=== PATIENT | female | born 1955 | race Hispanic/Latino ===

== ENCOUNTER → 2019-01-03 | Outpatient (CLI) | payer MEDICARE ==
[~2019-01-03] VITALS: Ht 162.6 cm; Wt 161.0 kg
[~2019-01-03] MED LIST: REGADENOSON 0.4 MG/5 ML PF SYG IVP SCH
== END | disposition home or self-care (01) ==
LOC: SHCH 08:35
PROVIDERS: ATTEND Internal Medicine Cardiovascular Disease
DX: I25.118 Atherosclerotic heart disease of native coronary artery with other forms of angina pectoris (principal); I42.0 Dilated cardiomyopathy
CPT/HCPCS: 78452; 93017; 96374; A9500 ×2; J2785